=== PATIENT | male | born 2000 | race Caucasian/White ===

== ENCOUNTER 2019-04-26 10:10 | Emergency (ER) | payer SELFPAY ==
[~2019-04-26] VITALS: Ht 177.8 cm; Wt 78.0 kg
[2019-04-26 13:14] VITALS: BP 127/72
== END 2019-04-26 13:14 | disposition home or self-care (01) ==
LOC: ER 10:10
DX: S61.210D Laceration without foreign body of right index finger without damage to nail, subsequent encounter (principal); F17.200 Nicotine dependence, unspecified, uncomplicated; X58.XXXD Exposure to other specified factors, subsequent encounter
CPT/HCPCS: 99281

== ENCOUNTER 2019-05-07 08:34 | Emergency (ER) | payer SELFPAY ==
[~2019-05-07] VITALS: Ht 162.6 cm; Wt 67.0 kg
[2019-05-07 10:36] VITALS: BP 123/82
== END 2019-05-07 10:36 | disposition home or self-care (01) ==
LOC: ER 08:34
DX: Z48.02 Encounter for removal of sutures (principal)
CPT/HCPCS: 99281; Z7610